=== PATIENT | female | born 1990 | race Caucasian/White ===

== ENCOUNTER 2018-01-02 10:48 | Outpatient (RCR) | payer BC ==
[~2018-01-02 10:48] MED LIST: ALPR.5T PO; AMPI500C9 PO; BCP; CYCL10TA9 PO; DOCU100C37 PO; FLUO20CA25 PO; HYDR-3720 PO; IBP800T PO; IBUP-1780 PO; METR500T PO; OXYC-465 PO; PNV91TAB3 PO; TRAZ-144 PO; [UNRECOGNIZED DRUG - OTHER] PO
== END 2018-04-02 | disposition home or self-care (01) ==
LOC: CARD 10:48
PROVIDERS: ATTEND Nurse Practitioner Family
DX: R00.2 Palpitations (principal)
CPT/HCPCS: 93225; 93226